=== PATIENT | female | born 1965 | race African-American/Black ===

== ENCOUNTER 2019-10-04 11:54 | Emergency (ER) | payer SELFPAY ==
[~2019-10-04] VITALS: Ht 172.7 cm; Wt 71.0 kg
[~2019-10-04 11:54] MED LIST: THORAZINE
[2019-10-04 13:27] LABS: CHLORIDE 108 mEq/L (98-107)
[2019-10-04 13:32] LABS: ETHANOL BLOOD < 10 mg/dL
[2019-10-04 13:38] LABS: BASOPHILS % 0.3 % (0.0-2.0); EOSINOPHILS % 2.6 % (0.0-5.0); HEMATOCRIT. 39.7 % (36.0-48.0); HEMOGLOBIN. 13.3 g/dL (12.0-16.0); LYMPHOCYTES % 40.4 % (20.0-50.0); MEAN CORPUSCULAR HEMOGLOBIN 32.2 pg (28.0-32.0); MEAN CORPUSCULAR VOLUME 95.9 fL (81.0-99.0); MEAN PLATELET VOLUME 8.8 fl (7.4-10.4); MONOCYTES % 7.4 % (2.0-8.0); NEUTROPHILS % 49.3 % (40.0-76.0); PLATELET 269 x1000/uL (130-400); RED BLOOD CELL COUNT 4.14 mill/uL (4.2-5.4); RED CELL DISTRIBUTION WIDTH 13.5 % (11.6-14.6)
[2019-10-04 18:39] VITALS: BP 128/66
== END 2019-10-04 19:05 | disposition home or self-care (01) ==
LOC: ER 11:54
DX: R41.82 Altered mental status, unspecified (principal); R03.0 Elevated blood-pressure reading, without diagnosis of hypertension
CPT/HCPCS: 36415; 80048; 80320; 85025; 93005; 99283; G0480